=== PATIENT | female | born 1945 | race Caucasian/White ===

== ENCOUNTER 2020-01-03 07:45 | Observation (INO) ==
--- NOTE | 2020-01-03 09:59 | History & Physical Bridge Note ---
Date of Service January 03, 2020 History & Physical Bridge Note I have examined the patient, reviewed the History & Physical and in the interval since the performance of the History & Physical I have noted the following changes of clinical significance: no changes noted
--- NOTE | 2020-01-03 10:00 | Pre Anesthesia Assessment ---
Date of Service January 03, 2020 Pre Sedation Assessment Vital Signs Temp Pulse Resp BP Pulse Ox 01/03/20 08:45 36.7 C 78 20 131/96 97 Cardiovascular + regular rhythm Respiratory normal respiratory effort, lungs clear to auscultation Pre-Sedation Airway Assessment Smoking Status: Former smoker Hx Sleep Apnea: No Short, Thick Neck: No Thyromental Distance: > or= 3.5 Finger Breadths Oral Cavity: + WNL Mallampati Class: II ASA: ASA3 NPO Status Date of Last Intake of Fluids: 01/03/20 Time of Last Intake of Fluids: 01:00 Date of Last Intake of Solid Food: 01/02/20 Time of Last Intake of Solid Foods: 19:00 Procedure Planning Contraindications for Sedation: none Current Medications Reviewed: Yes Notes The planned sedation has been discussed with the patient. Informed Consent was obtained. I have identified the patient, determined the appropriateness of sedation and have assessed the patient immediately prior to the procedure. All medicine(s) and interventions are by my order.
[2020-01-03] MEDS ORDERED: MIDAZOLAM HCL 5 MG/ML 1 ML VIAL ONE ×2 (10:09→11:36)
[2020-01-03] MEDS ORDERED: fentaNYL citrate 100 MCG/2 ML VIAL ONE ×2 (10:09→10:59)
[2020-01-03] MEDS ORDERED: HEPARIN (PORCINE) 1000 UNIT/ML 10 ML (CATH LAB USE ONLY) ONE (10:39)
[2020-01-03] MEDS ORDERED: ISOPROTERENOL HCL 0.2 MG/ML 5 ML AMP IV ONE (10:39)
--- NOTE | 2020-01-03 12:25 | Post Anesthesia Assessment ---
Date of Service January 03, 2020 Post Sedation Assessment Vital Signs Temp Pulse Resp BP Pulse Ox 01/03/20 08:45 36.7 C 78 20 131/96 97 Recovery Score Activity: Moves 4 extremities Respiration: Deep Breath/Cough Circulation: +/-20% PreAnes Value Consciousness: Fully Awake Oxygen Saturation: O2 needed for >90% Discharge Sedation Level of Care: Fast Track Phase II Post Sedation Plan On clinical assessment, the patient appears to have tolerated the sedation without complications. Patient is recovering as anticipated. Patient will continue to be monitored by nursing and may be discharged when sedation discharge criteria are met per below protocol. Upon Completions of procedure up to 15 minutes continue every 5 minute vital signs and the P.A.R. score; then discharge to a Phase I or Fast Track to Phase II per the following guidelines: * Discharge Patient to appropriate Phase II area if PAR is 8 or greater or return to pre- procedure baseline. The post - procedure orders will be as directed. * If PAR score is less than 8 or not return to pre-procedure baseline then patient will follow Phase I monitoring till PAR is reached for Phase II. The Phase I may be done in procedure room or may call to secure a Phase I area. * If naloxone or flumazenil are used for reversal, hold in Phase I for continued monitoring from when last reversal dose was given for a minimum of 60 minutes or longer pending the nurse and/or physician discretion of patient condition before discharge to Phase II. Please call the Sedation Physician to re-evaluate and complete post-note for discharge to Phase II area. Do NOT discharge from procedure sedation or Phase 1 until post- sedation evaluation note is complete by procedure /sedation MD Sedation Discharge Instructions to be given to the patient at discharge to home.
--- NOTE | 2020-01-03 12:26 | Operative Report ---
Post Operative Report Pre & Post Diagnosis Pre Op: SVT Post OP: AVNRT Operation Date: 01/03/20 12:00 <No data on this case meets the specified criteria> I identified the patient and participated in the time-out.: Yes Procedure Operation Date: 01/03/20 12:00 <No data on this case meets the specified criteria> EPS Slow pathway modification 3D mapping HIS bundle Surgeon Samantha Pedraza, DO [employer] none Estimated Blood Loss 5 Findings Consistent with Post-Op Diagnosis Specimens none Description of Procedure see official report I attest to the content of the Intraoperative Record and any orders documented therein. Any exceptions are noted below.
[2020-01-03] MEDS ORDERED: ACETAMINOPHEN 325 MG TAB PO PRN (12:28)
[2020-01-03] MEDS ORDERED: NITROGLYCERIN SL 0.4 MG/TAB TAB SL PRN (12:28)
[2020-01-03] MEDS ORDERED: ALBUT/IPRATROP 3MG/0.5MG NEB 3 ML VIAL INH PRN (12:28)
[2020-01-03] MEDS ORDERED: DOCUSATE SODIUM 100 MG CAP PO PRN (12:52)
[2020-01-03] MEDS ORDERED: FUROSEMIDE 60 MG in SYRINGE 0 ML IV ONE (15:30)
[2020-01-03] MEDS: SUCRALFATE 1 GM TAB PO SCH ×3 (17:28→20:37)
[2020-01-03] MEDS: hydrALAZINE 10 MG TAB PO SCH ×2 (17:28→20:38)
[2020-01-03] MEDS: MECLIZINE 12.5 MG TAB PO SCH ×3 (17:28→20:38)
[2020-01-03] MEDS: MAGNESIUM OXIDE 400 MG TAB PO SCH ×2 (17:31→20:38)
[2020-01-03] MEDS: METOPROLOL SUCC 50MG EXT REL TAB PO SCH (20:37)
[2020-01-03] MEDS: APIXABAN 5 MG TABLET PO SCH (20:38)
[2020-01-04] MEDS: LEVOTHYROXINE SODIUM 125 MCG TABLET PO SCH (06:09)
[2020-01-04] MEDS: hydrALAZINE 10 MG TAB PO SCH ×3 (08:07→20:50)
[2020-01-04] MEDS: SUCRALFATE 1 GM TAB PO SCH ×4 (08:07→20:51)
[2020-01-04] MEDS: ISOSORBIDE MONO EXTENDED REL 30 MG TABCR PO SCH (08:08)
[2020-01-04] MEDS: MAGNESIUM OXIDE 400 MG TAB PO SCH ×3 (08:08→20:51)
[2020-01-04] MEDS: PRENATAL VITAMIN 1 TAB PO SCH (08:08)
[2020-01-04] MEDS: METOPROLOL SUCC 50MG EXT REL TAB PO SCH ×2 (08:08→20:52)
[2020-01-04] MEDS: ATORVASTATIN 40 MG TAB PO SCH (08:08)
[2020-01-04] MEDS: POTASSIUM CHLORIDE 20 MEQ TABCR PO SCH (08:08)
[2020-01-04] MEDS: PANTOprazole 40 MG TAB PO SCH (08:08)
[2020-01-04] MEDS: EZETIMIBE 10 MG TABLET PO SCH (08:08)
[2020-01-04] MEDS: CYANOCOBALAMIN 500 MCG TABLET (VITAMIN B-12) PO SCH (08:08)
[2020-01-04] MEDS: APIXABAN 5 MG TABLET PO SCH ×2 (08:08→20:49)
[2020-01-04] MEDS: MECLIZINE 12.5 MG TAB PO SCH ×4 (08:09→20:50)
[2020-01-04] MEDS: FERROUS SULFATE 325 MG TAB PO SCH (08:09)
[2020-01-04] MEDS: TORSEMIDE 20 MG TAB PO SCH (08:09)
[2020-01-04] MEDS: FLUTICASONE/VILANTEROL 100/25MCG 14 PUFFS/INHALER INH SCH ×2 (08:09→08:33)
[2020-01-04] MEDS ORDERED: MECLIZINE HCL 25 MG TAB PO PRN (08:24)
--- NOTE | 2020-01-04 08:29 | Discharge Summary ---
Date of Service January 04, 2020 Admission HPI Per Admitting Provider Pt admitted due to AVNRT Admission Exam Per Admitting Provider aaox3, NAD NC/AT, EOMI Supple No JVD Nrl S1/S2, No murmur CTA b/l no w/r/r soft nt/nd no LE edema b/l skin intact no focal deficits Principal Diagnosis AVNRT s/p ablation Discharge Exam aaox3, NAD NC/AT, EOMI Supple No JVD Nrl S1/S2, No murmur CTA b/l no w/r/r soft nt/nd no LE edema b/l skin intact no focal deficits Discharge Data Allergies Allergy/AdvReac Type Severity Reaction Status Date / Time Iodinated Contrast Media Allergy Severe Anaphylaxis Verified 01/03/20 07:29 bee venom protein (honey bee) Allergy Intermediate swelling Verified 01/03/20 07:29 calcium carbonate Allergy Mild Flushing Verified 01/03/20 07:29 diphenhydramine Allergy Mild Flushing Verified 01/03/20 07:29 [From Benadryl] lidocaine Allergy Mild Flushing Verified 01/03/20 07:29 levofloxacin [From Levaquin] AdvReac Mild other Verified 01/03/20 07:29 simvastatin [From Zocor] AdvReac Mild Redness of Verified 01/03/20 07:29 Skin Procedures Performed Operation Date: 01/03/20 12:00 Actual Procedures p EPS + Ablation for SVT Flutter - DO ramandeep Caba 3D Mapping (Carto) - DO ramandeep Caba Bundle of his Recording - Samantha Pderaza DO Ordered Studies 01/03/20 06:45 EP Lab Images for PACS ONCE Hospital Course (1) AVNRT (AV alli re-entry tachycardia): Total Time Total Time Spent Total Time Spent (In Minutes): 40 Total Time Includes: Examination of the Patient, Discharge Planning, Medication Reconciliation and Other Discharge Plan Discharge Items Patient Disposition: Home - Self-Care Reason For Visit: SVT ABLATION 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 Pedraza next month as scheduled Pending Studies at Discharge: No Stand-Alone Forms: My [facility] Medications and DC Order Prescriptions: Continued hydralazine 10 mg Tablet 10 mg PO TID RF: 0 atorvastatin [Lipitor] 80 mg Tablet 80 mg PO DAILY RF: 0 ipratropium-albuterol 0.5 mg-3 mg(2.5 mg base)/3 mL Solution For Nebulization 3 ml INHALATION Q6H PRN (Reason: Shortness Of Breath) RF: 0 torsemide 20 mg Tablet 60 mg PO DAILY RF: 0 sucralfate 1 gram Tablet 1 g QID RF: 0 isosorbide mononitrate 30 mg Tablet Extended Release 24 Hr 15 mg PO DAILY RF: 0 meclizine 12.5 mg Tablet 12.5 mg PO QID RF: 0 pantoprazole [Protonix] 40 mg Tablet,Delayed Release (Dr/Ec) 40 mg PO DAILY RF: 0 ferrous sulfate 325 mg (65 mg iron) Tablet 325 mg PO DAILY RF: 0 docusate sodium 100 mg Tablet 100 mg PO DAILY PRN (Reason: Constipation) RF: 0 Ozempic 0.25 mg or 0.5 mg(2 mg/1.5 mL) Pen Injector See Rx Instructions .ROUTE .COMPLEX RF: 0 potassium chloride 20 mEq Tablet,Er Particles/Crystals 20 meq PO DAILY RF: 0 PNV cmb#95-ferrous fumarate-FA [] 28 mg iron- 800 mcg Tablet 1 tab PO DAILY RF: 0 Eliquis 5 mg Tablet 5 mg BID RF: 0 metoprolol succinate [Toprol XL] 50 mg Tablet Extended Release 24 Hr 50 mg PO BID RF: 0 cyanocobalamin (vitamin B-12) 500 mcg Tablet 500 mcg PO DAILY RF: 0 levothyroxine 125 mcg Tablet 125 mcg DAILY RF: 0 nitroglycerin [Nitrostat] 0.4 mg Tablet, Sublingual See Rx Instructions .ROUTE .COMPLEX PRN (Reason: Chest Pain) RF: 0 magnesium 200 mg Tablet 400 mg PO TID RF: 0 budesonide-formoterol [Symbicort] 80-4.5 mcg/actuation Hfa Aerosol Inhaler 2 puff INHALATION BID RF: 0 Zetia 10 mg DAILY RF: 0 Discharge Orders: Discharge Order (Routine); Ordered 01/04/20 Ordered By: Samantha Pedraza Admission Data Admit Date/Time: 01/03/20 10:17 Attending Provider: Samantha Pedraza Admit Provider: Samantha Pedraza Primary Care Provider: Pito Skaggs
--- NOTE | 2020-01-04 13:20 | Cardiology Progress Note ---
Date of Service January 04, 2020 Assessment & Plan (1) Vertigo: Patient has history of vertigo with recent symptoms worsening today possibly in response to procedure and medications/sedation and positioning during study. No acute neurologic findings observed on exam. Not acutely ill however gait instability and fall risk elevated Continue observation, anticipate discharge in a.m. Check CBC and BMP today, orthostatic blood pressure Continue meclizine as ordered (2) Gait instability: Elevated fall risk at this time, will continue (3) AVNRT (AV alli re-entry tachycardia): Admission and Anticipated Discharge Date Admission Date: January 03, 2020 Subjective , Gait unsteady Patient was seen and examined, chart, medications, telemetry reviewed. Patient's past history also reviewed in detail. She carries complex constellation of underlying ischemic cardiomyopathy and complex arrhythmias Patient underwent EP study yesterday Today notes vertigo symptoms have worsened beyond usual baseline with gait instability. No focal neurologic complaints double vision or visual blurring Just "feels weak", gait unsteady when ambulatory. Lives with son predominantly independent care Past history notable for vertigo treated with meclizine as well as multiple drug intolerances and allergies Physical Exam Constitutional: + obese; no acute distress Eyes: PERRL, conjunctivae normal, anicteric sclerae EOM intact bilaterally; no nystagmus ENMT: external ear and nose normal, oropharynx normal Respiratory: Auscultation: + wheezes (Few scattered wheezes with forced cough) Cardiovascular: Rate/Rhythm: regular rate and regular rhythm (With occasional ventricular ectopic beats) Procedure access sites bilateral groin without hematoma or drainage. Results & Data ([facility]) Vital Signs (Past 12 Hours) Vital Signs Temp Pulse Pulse Pulse Resp BP BP 01/04/20 12:00 36.4 C L 80 18 118/67 01/04/20 09:57 36.6 C 90 18 111/55 L 01/04/20 09:54 91 H 01/04/20 09:40 36.6 C 90 18 111/55 L 01/04/20 09:00 85 26 H 01/04/20 08:30 92 H 23 01/04/20 08:16 37.2 C 86 24 125/51 L 01/04/20 08:00 89 22 01/04/20 07:30 82 26 H 01/04/20 07:00 80 24 10/29/20 06:45 80 22 01/04/20 04:18 36.8 C 78 19 126/56 L Pulse Ox 01/04/20 12:00 95 01/04/20 09:57 94 01/04/20 09:54 01/04/20 09:40 94 01/04/20 09:00 01/04/20 08:30 01/04/20 08:16 88 L 01/04/20 08:00 01/04/20 07:30 01/04/20 07:00 01/04/20 06:45 01/04/20 04:18 96
[2020-01-04 14:15] LABS: Basophils # (auto) 0.03 K/uL (0-0.2); Basophils % (auto) 0.3 %; Eosinophils # (auto) 0.39 K/uL (0-0.5); Eosinophils % (auto) 3.8 %; Hematocrit (blood only) 32.7 % (37-47); Hemoglobin 10.2 g/dL (12.0-16.0); Immature Granulocytes # (auto) 0.02 K/uL (0.00-0.02); Immature Granulocytes % (auto) 0.2 %; Lymphocytes # (auto) 1.13 K/uL (1.2-3.4); Lymphocytes % (auto) 10.9 %; Mean Corpuscular Hemoglobin 27.7 pg (25-34); Mean Corpuscular Hgb Conc 31.2 g/dL (32-36); Mean Corpuscular Volume 88.9 fL (80-100); Mean Platelet Volume 9.7 fL (7.4-10.4); Monocytes # (auto) 0.53 K/uL (0.11-0.59); Monocytes % (auto) 5.1 %; Neutrophils # (auto) 8.26 K/uL (1.4-6.5); Neutrophils % (auto) 79.7 %; Platelet Count 266 K/uL (130-400); RDW Coefficient of Variation 18.5 % (11.5-14.5); RDW Standard Deviation 60.4 fL (36.4-46.3); Red Blood Count 3.68 M/uL (4.2-5.4); White Blood Count 10.36 K/uL (4.8-10.8)
[2020-01-04 14:29] LABS: BUN Creatinine Ratio 22.4 (10-20); Calcium 8.8 mg/dl (8.5-10.1); Creatinine Clr Calc Pharmacy 27.6 ml/min; Est GFR (African American) 35.1; Est GFR (Non-African American) 30.3; Potassium 3.7 mmol/L (3.5-5.1)
--- NOTE | 2020-01-05 05:09 | Electrocardiogram Report ---
Test Reason : Blood Pressure : / mmHG Vent. Rate : 078 BPM Atrial Rate : 078 BPM P-R Int : 150 ms QRS Dur : 122 ms QT Int : 462 ms P-R-T Axes : 002 004 000 degrees QTc Int : 526 ms Atrial-sensed ventricular-paced rhythm with occasional Premature ventricular complexes Abnormal ECG No previous ECGs available Confirmed by Hilario Cosby ([id number]) on 01/05/2020 5:09:15 AM Referred By: Samantha Pedraza Confirmed By:Hilario Cosby
[2020-01-05] MEDS: LEVOTHYROXINE SODIUM 125 MCG TABLET PO SCH (05:24)
[2020-01-05] MEDS: MAGNESIUM OXIDE 400 MG TAB PO SCH (08:38)
[2020-01-05] MEDS: METOPROLOL SUCC 50MG EXT REL TAB PO SCH (08:38)
[2020-01-05] MEDS: FLUTICASONE/VILANTEROL 100/25MCG 14 PUFFS/INHALER INH SCH (08:38)
[2020-01-05] MEDS: PRENATAL VITAMIN 1 TAB PO SCH (08:39)
[2020-01-05] MEDS: POTASSIUM CHLORIDE 20 MEQ TABCR PO SCH (08:39)
[2020-01-05] MEDS: APIXABAN 5 MG TABLET PO SCH (08:39)
[2020-01-05] MEDS: PANTOprazole 40 MG TAB PO SCH (08:39)
[2020-01-05] MEDS: SUCRALFATE 1 GM TAB PO SCH (08:39)
[2020-01-05] MEDS: FERROUS SULFATE 325 MG TAB PO SCH (08:40)
[2020-01-05] MEDS: ATORVASTATIN 40 MG TAB PO SCH (08:40)
[2020-01-05] MEDS: TORSEMIDE 20 MG TAB PO SCH (08:40)
[2020-01-05] MEDS: ISOSORBIDE MONO EXTENDED REL 30 MG TABCR PO SCH (08:40)
[2020-01-05] MEDS: hydrALAZINE 10 MG TAB PO SCH (08:41)
[2020-01-05] MEDS: EZETIMIBE 10 MG TABLET PO SCH (08:41)
[2020-01-05] MEDS: MECLIZINE 12.5 MG TAB PO SCH (08:41)
[2020-01-05] MEDS: CYANOCOBALAMIN 500 MCG TABLET (VITAMIN B-12) PO SCH (08:41)
--- NOTE | 2020-01-05 10:16 | Cardiology Progress Note ---
Date of Service January 05, 2020 Assessment & Plan (1) Vertigo: Improved. Patient clinically stable for discharge today (2) Gait instability: (3) AVNRT (AV alli re-entry tachycardia): Admission and Anticipated Discharge Date Admission Date: January 03, 2020 Subjective Patient feels substantially better this morning. No further lightheadedness or dizziness. Ambulatory to bathroom without difficulty using walker. No significant arrhythmias on telemetry Patient was seen and examined, chart, medications, telemetry reviewed. Review of Systems Review of Systems: All systems reviewed & are unremarkable except as noted in HPI & below Physical Exam Constitutional: + obese; no acute distress Eyes: PERRL, conjunctivae normal, anicteric sclerae EOM intact bilaterally; no nystagmus ENMT: external ear and nose normal, oropharynx normal Respiratory: Auscultation: + wheezes (Few scattered wheezes with forced cough) Cardiovascular: Rate/Rhythm: regular rate and regular rhythm (With occasional ventricular ectopic beats) Procedure access sites healing well Chest (Breasts): Chest: + pacemaker (Left shoulder with well-healed surgical incision no tenderness) Results & Data ([facility]) Vital Signs (Past 12 Hours) Vital Signs Temp Pulse Pulse Resp BP Pulse Ox 01/05/20 08:40 36.8 C 76 18 108/69 95 01/05/20 07:29 75 01/05/20 03:37 36.8 C 70 18 104/51 L 98 01/04/20 23:22 37.0 C 68 18 107/62 97 Laboratory Results Laboratory Results - last 24 hr 01/04/20 01/04/20 01/05/20 13:53 13:53 03:49 WBC 10.36 RBC 3.68 L Hgb 10.2 L Hct 32.7 L MCV 88.9 MCH 27.7 MCHC 31.2 L RDW Std Deviation 60.4 H RDW Coeff of Chris 18.5 H Plt Count 266 MPV 9.7 Immature Gran % (Auto) 0.2 Neut % (Auto) 79.7 Lymph % (Auto) 10.9 [place] % (Auto) 5.1 Eos % (Auto) 3.8 Baso % (Auto) 0.3 Neut # (Auto) 8.26 H Lymph # (Auto) 1.13 L [place] # (Auto) 0.53 Eos # (Auto) 0.39 Baso # (Auto) 0.03 Immature Gran # (Auto) 0.02 Sodium 138 Potassium 3.7 Chloride 98 Carbon Dioxide 35 H Anion Gap 5.0 BUN 37 H Creatinine 1.66 H Est Cr Clr Drug Dosing 27.6 Est GFR ( Amer) 35.1 Est GFR (Non-Af Amer) 30.3 BUN/Creatinine Ratio 22.4 H Glucose 128 H POC Glucose 251 H Calcium 8.8 01/05/20 01/05/20 05:07 07:38 WBC RBC Hgb Hct MCV MCH MCHC RDW Std Deviation RDW Coeff of Chris Plt Count MPV Immature Gran % (Auto) Neut % (Auto) Lymph % (Auto) [place] % (Auto) Eos % (Auto) Baso % (Auto) Neut # (Auto) Lymph # (Auto) [place] # (Auto) Eos # (Auto) Baso # (Auto) Immature Gran # (Auto) Sodium Potassium Chloride Carbon Dioxide Anion Gap BUN Creatinine Est Cr Clr Drug Dosing Est GFR ( Amer) Est GFR (Non-Af Amer) BUN/Creatinine Ratio Glucose POC Glucose 148 H 102 H Calcium
--- NOTE | 2020-01-07 09:54 | Operative Report (OR) ---
DATE OF OPERATION: 01/03/2020 PREOPERATIVE DIAGNOSIS: Supraventricular tachycardia. POSTOPERATIVE DIAGNOSIS: Atrioventricular alli reentrant tachycardia. PROCEDURE: Electrophysiology study, 3D mapping of the His bundle region, slow pathway modification. Biventricular implantable cardiac defibrillator reprogramming and interrogation. SURGEON: Samantha Pedraza DO. ASSISTANTS: None. ANESTHESIA: Monitored conscious sedation administered under my supervision by Mary Salgado. Start time 10:32, end time 12:25, a total of 5 mg of Versed and 125 mcg of fentanyl. INTRAVENOUS FLUIDS: 200 mL. ANTIBIOTICS: Two grams of Ancef. BLOOD LOSS: 5 mL URINE OUTPUT: Not applicable. SPECIMENS: None. FINDINGS: See below. DRAINS: None. COMPLICATIONS: None. CONDITION: Stable. INDICATIONS: This is a 74-year-old female with a past medical history for coronary artery disease with history of a CABG in [place] in 05/1999 with DOSHI to LAD, SVG to OM1, sequential to OM2, SVG to PDA 3, PCIs to the SVG to OM in 03/2018, hypertension, hyperlipidemia, diabetes, COPD, ischemic cardiomyopathy, ejection fraction 30% where she has a biventricular ICD that was implanted in 04/2011 with gen change in 08/2019, chronic heart failure with reduced ejection fraction, Stanton Association class III, paroxysmal atrial fibrillation and flutter, on digoxin, metoprolol and Eliquis, CHADS2-VASc score of 6. She also has COPD, hypothyroidism, iron deficiency anemia, history of adenocarcinoma, lung cancer. She presented to [facility] earlier in December with a wide complex tachycardia that did end up requiring an external cardioversion on her defibrillator interrogation, it looks there are multiple episodes of SVT with a short VA time and starts at 200 beats per minute. During her admission at [place], she was recommended an ablation, but the patient preferred to have it closer to home, so she presents today for the ablation. CONSENT: Consent was obtained prior to the patient going into electrophysiology lab. The patient was informed of the risks, benefits and alternative procedure. Risks include but not limited to sudden cardiac , cardiac arrhythmias, cerebrovascular accident, myocardial infarction, injury to the blood vessels, chamber of the heart or the eyak electrical system where she would need permanently depending on defibrillator, bleeding and infection. The patient understood these risks and agreed with procedure as planned. Informed consent was obtained. DESCRIPTION OF THE PROCEDURE: The patient was brought into the electrophysiology lab in fasting state. She was connected to continuous cardiac monitoring. A timeout was performed to ensure patient's identity and procedure correctly. She received prophylactic antibiotics prior to incision. She was prepped and draped over bilateral groins in normal surgical standard fashion. Monitored conscious sedation was given throughout the procedure for patient's comfort level. [place] precautions were maintained throughout the procedure. Her biventricular defibrillator was interrogated and reprogrammed with the following findings. Her right atrial preprocedural biventricular defibrillator findings. 1. Right atrial lead: P waves 1.1 millivolts, impedance 399 ohms. 2. RV lead: R waves greater than 20 millivolts, impedance 646 ohms and threshold 1.25 volts at 0.4 milliseconds. 3. RV coil was 85 ohms. The left ventricular lead threshold. The device was reprogrammed to VVI 30. 1% lidocaine were given in the bilateral groins for local anesthesia. Then using the modified Seldinger technique, venous access was obtained with the following manner. The right femoral vein had a 6-Moldovan sheath followed by a Vida quadripolar catheter positioned in the right ventricular apex followed by a 6-Moldovan sheath with the Vida quadripolar catheter position in the right atrium. Of note, I did eventually removed the right ventricular lead and swapped out the 6-Moldovan sheath for an SRO, so I could put the ablation 4 mm DF curved Biosense non-irrigated ablation catheter. The left femoral vein had a 7-Moldovan sheath followed by a Hisser catheter positioned over the His bundle region and Decapolar Hisser catheter positioned in the His bundle region. With the catheters in place, an electrophysiology study was performed with the following findings: MI interval was 219 milliseconds, the QRS was 157 milliseconds. The QT was 472 milliseconds. Sinus cycle length was 920 milliseconds, AH 61 milliseconds, HV 65 milliseconds, AV Wenckebach 330 milliseconds. The AV node ERP was less than or equal to the atrial ERP at a drive train of 600 and 400, the atrial ERP was 600/260 and 400/240. Right ventricular ERP was 600/240 and 400/220. I gave extrastimuli from the high right atrium and when I was doing double extrastimuli at 600, 350,240, I would have double echoes as well as at 400, 320, 250. I did not want to give isopropanol secondary to all of her comorbidities. Given that I had the evidence of this very short VA timing that pretty much diagnosed AVNRT from her biventricular defibrillator interrogation as well as the evidence of double echoes. I opted to set up to do a slow pathway ablation. The right ventricular Vida catheter was removed and the 6-Moldovan sheath was swapped out for an SRO sheath and then the ablation catheter was advanced into the heart. We did 3D mapping of the His bundle, cloud was performed, then positioning the ablation catheter on the low right atrial septum series of radiofrequency kumar were given at 35 holliday with junctional occurring. Once I felt like we had enough, I then put the ablation catheter into the right ventricle and then performed a post-ablation electrophysiology study with the following findings: 1. Sinus cycle length 830 milliseconds, MI 153 milliseconds, QRS 170 milliseconds, QT 442 milliseconds. 2. The AH was 63 milliseconds, HV was 56 milliseconds. 3. AV Wenckebach was 390 milliseconds. Possible evidence of the fast pathway ERP at 600 and 330 milliseconds, the AV node ERP was less than or equal to the atrial ERP at a drive train of 600 and 400. The atrial ERP was 600/260 and 400/240. Right ventricular ERP was 600/260 and 400/260. I gave up to triples from the high right atrium and I did not induce any SVT nor did I have any double echoes. I did have a few with triple extrastimuli of 1 echo. I felt this was satisfactory and catheters were all removed from the body and the sheaths were pulled and manual compression was used to establish hemostasis. The biventricular defibrillator was then reinterrogated and reprogrammed with the following findings post procedure. 1. The right atrial lead: P waves were 1.3 millivolts, impedance 399 ohms, threshold 0.5 volts at 0.4 milliseconds. 2. Right ventricular lead: R waves greater than 20 millivolts, impedance 589 ohms, threshold 1 volt at 0.4 milliseconds. 3. The RV coil was 80 ohms. 4. The left bundle lead impedance was 855 ohms and the threshold was 1.75 volts at 0.4 milliseconds. Programmed LV3-LV4. Detections were turned back on as well as the device was reprogrammed back to its prior settings with DDDR 60. IMPRESSION: Successful slow pathway modification secondary to atrioventricular alli reentrant tachycardia. PLAN: Monitor patient overnight, 12-lead ECG. She is not to do any heavy lifting or squatting for 1 week's time and I will see her back in the office in 1 month's time. I attest to the content of the Intraoperative Record and any orders documented therein. Any exception s are noted below.
== END 2020-01-05 10:10 | disposition home or self-care (01) ==
LOC: 1E 07:45 → EP 07:45 → 2S 01-04 09:33
DX: I50.43 Acute on chronic combined systolic (congestive) and diastolic (congestive) heart failure; I47.2 Ventricular tachycardia; Z87.891 Personal history of nicotine dependence; Z79.899 Other long term (current) drug therapy; N18.30 Chronic kidney disease, stage 3 unspecified; Z79.890 Hormone replacement therapy; I47.1 Supraventricular tachycardia; Z95.810 Presence of automatic (implantable) cardiac defibrillator; C76.0 Malignant neoplasm of head, face and neck; Z95.1 Presence of aortocoronary bypass graft; R26.9 Unspecified abnormalities of gait and mobility; Z91.041 Radiographic dye allergy status; C34.92 Malignant neoplasm of unspecified part of left bronchus or lung; R42 Dizziness and giddiness; E11.22 Type 2 diabetes mellitus with diabetic chronic kidney disease; I25.5 Ischemic cardiomyopathy; E03.9 Hypothyroidism, unspecified; J44.9 Chronic obstructive pulmonary disease, unspecified; Z91.030 Bee allergy status; I13.0 Hypertensive heart and chronic kidney disease with heart failure and stage 1 through stage 4 chronic kidney disease, or unspecified chronic kidney disease; I25.10 Atherosclerotic heart disease of native coronary artery without angina pectoris; G47.30 Sleep apnea, unspecified; Z88.1 Allergy status to other antibiotic agents; Z88.8 Allergy status to other drugs, medicaments and biological substances; Z95.0 Presence of cardiac pacemaker; E78.5 Hyperlipidemia, unspecified